=== PATIENT | female | born 1975 | race American Indian/Alaskan Native ===

== ENCOUNTER 2017-11-01 13:09 | Outpatient (CLI) | payer OTHER ==
[2017-11-01] MEDS ORDERED: XYLOCAINE TOPICAL 4% TP ONE (13:39)
== END 2017-11-01 13:10 | disposition home or self-care (01) ==
LOC: WOUND 13:09
PROVIDERS: ATTEND Surgery
DX: T81.89XA Other complications of procedures, not elsewhere classified, initial encounter (principal); Z72.89 Other problems related to lifestyle; Z90.710 Acquired absence of both cervix and uterus; Y83.8 Other surgical procedures as the cause of abnormal reaction of the patient, or of later complication, without mention of misadventure at the time of the procedure

== ENCOUNTER 2017-11-08 13:27 | Outpatient (CLI) | payer OTHER ==
[2017-11-08] MEDS ORDERED: XYLOCAINE TOPICAL 4% TP ONE (14:31)
== END 2017-11-08 13:28 | disposition home or self-care (01) ==
LOC: WOUND 13:27
PROVIDERS: ATTEND Surgery
DX: T81.89XD Other complications of procedures, not elsewhere classified, subsequent encounter (principal); Z72.89 Other problems related to lifestyle; Y83.8 Other surgical procedures as the cause of abnormal reaction of the patient, or of later complication, without mention of misadventure at the time of the procedure

== ENCOUNTER 2017-11-14 14:02 | Outpatient (CLI) | payer OTHER ==
[2017-11-14] MEDS ORDERED: XYLOCAINE TOPICAL 4% TP ONE (14:34)
== END 2017-11-14 14:03 | disposition home or self-care (01) ==
LOC: WOUND 14:02
PROVIDERS: ATTEND Surgery
DX: T81.89XD Other complications of procedures, not elsewhere classified, subsequent encounter (principal); Y83.8 Other surgical procedures as the cause of abnormal reaction of the patient, or of later complication, without mention of misadventure at the time of the procedure

== ENCOUNTER 2017-11-21 13:06 | Outpatient (CLI) | payer OTHER | END 2017-11-21 13:07 | disposition home or self-care (01) | LOC: WOUND 13:06 | PROVIDERS: ATTEND Surgery | DX: T81.89XD Other complications of procedures, not elsewhere classified, subsequent encounter (principal); Z90.711 Acquired absence of uterus with remaining cervical stump; Y83.8 Other surgical procedures as the cause of abnormal reaction of the patient, or of later complication, without mention of misadventure at the time of the procedure ==